=== PATIENT | female | born 1980 | race African-American/Black ===

== ENCOUNTER 2016-08-29 19:49 | Emergency (ER) | payer SELFPAY ==
[~2016-08-29] VITALS: Ht 152.4 cm; Wt 63.0 kg
[2016-08-29 19:50] VITALS: BP 100/67; PULSE 99; RESP 16; TEMP 97.8; O2SAT 97
== END 2016-08-29 20:42 | disposition left against medical advice (07) ==
LOC: NED 19:49
DX: R68.89 Other general symptoms and signs (principal)
CPT/HCPCS: 99281